=== PATIENT | female | born 1990 | race Caucasian/White ===

== ENCOUNTER 2016-11-14 02:44 | Inpatient (IN) | payer MEDICAID ==
[~2016-11-14] VITALS: Ht 167.6 cm; Wt 65.5 kg
[~2016-11-14 02:44] MED LIST: AMBIEN5 MG PO; PHENERGAN25 M1 PO; PRENATAL PLUS I1 TAB PO; ULTRAM50 MG PO; ZOFRAN ODT4 MG PO
[2016-11-14] MEDS ORDERED: HABITROL21 MG TOP (05:46)
[2016-11-14] MEDS ORDERED: REGLAN10 MG PO (05:47)
[2016-11-15] MEDS ORDERED: MOTRIN800 MG PO (09:40)
[2016-11-15] MEDS ORDERED: COLACE100 MG PO (09:42)
== END 2016-11-15 14:40 | disposition short-term general hospital (02) | DRG 775 ==
LOC: LDROP 02:44 → LDRIP 04:00
PROVIDERS: ADMIT Family Medicine
PROC: 10E0XZZ Delivery of Products of Conception, External Approach (ICD-10-PCS; principal; 2016-11-14)
DX: O99.324 Drug use complicating childbirth (principal); O99.334 Smoking (tobacco) complicating childbirth; Z3A.38 38 weeks gestation of pregnancy; Z37.0 Single live birth; F17.210 Nicotine dependence, cigarettes, uncomplicated; F12.90 Cannabis use, unspecified, uncomplicated
CPT/HCPCS: A9150; G0477; J2300; J2310; J2370; J2540; J2590; J2795; J3010